=== PATIENT | male | born 1955 | race Asian ===

== ENCOUNTER 2017-08-04 07:09 | Day surgery (SDC) | payer OTHER ==
[2017-08-04] MEDS ORDERED: LACTATED RINGERS 1,000 ML IV ONE (07:35)
[2017-08-04] MEDS ORDERED: fentaNYL 100 MCG/2 ML VIAL IVP ONE (08:25)
[2017-08-04] MEDS ORDERED: MIDAZOLAM 2 MG/2 ML VIAL IVP ONE (08:25)
[2017-08-04 09:11] VITALS: BP 136/69
== END 2017-08-04 07:10 | disposition home or self-care (01) ==
LOC: SDS 07:09
PROVIDERS: ATTEND Surgery
PROC: 0DBP8ZX Excision of Rectum, Via Natural or Artificial Opening Endoscopic, Diagnostic (ICD-10-PCS; principal; 2017-08-04 08:15)
DX: Z12.11 Encounter for screening for malignant neoplasm of colon (principal); D12.8 Benign neoplasm of rectum; I10 Essential (primary) hypertension; E78.5 Hyperlipidemia, unspecified; G47.30 Sleep apnea, unspecified; Z79.82 Long term (current) use of aspirin
CPT/HCPCS: 45384; J7120

== ENCOUNTER 2020-08-28 13:35 | Outpatient (CLI) | payer OTHER ==
[2020-08-28 14:27] VITALS: BP 159/109
--- NOTE | 2020-08-28 14:27 | SLEEP CARE CONSULTATION ---
Information from patient questionnaire entered by Simran García. I have reviewed and concur with the information entered by Simran García. This document represents the service I personally performed and the decisions made by me, Severo Mayo MD, [facility] [place] History of Present Illness Service Date and Time: 08/28/2020 1335 Reason for Visit: New patient, Previously diagnosed sleep apnea (severe - AHI - 37.8), Re-establish care (last seen 2007) Chief Complaint: reports: Snoring, Frequent awakenings at night Date of Onset: 13 years Usual bedtime: 11 pm Time it takes to fall asleep: 1 hour Snores at night: Yes Observed to quit breathing while asleep: No Sleeps alone due to snoring: Yes Number of times waking at night: 2-3 Reasons for waking at night: reports: Snoring, Bathroom Toss, Turn, or Twitch while sleeping: Yes Recalls having dreams: Yes Usually gets out of bed at: 7:30-8 am Feels refreshed in the morning: No Morning headache: No Sleepy or fatigued during the day: Yes Ever fallen asleep while driving: Yes Takes day naps: No Dreams during day naps: No Prior sleep studies: Yes Year and Where: 2007 - [facility] Type of Sleep Study: Polysomnography Additional HPI information: Mr. Bolton is a 65 year old gentleman who was diagnosed here 13 years ago with severe obstructive sleep apnea-hypopnea. The AHI was 37.8 and ramonita oxygen saturation, 73%. He was started on CPAP at 6 cmH2O. He never returned until now. He said he used the CPAP for a short while then quit because it was too loud. He continues to snore and his continues to see him quit breathing at night. He is sleepy during the day. . - Parasomnia Symptoms Ever been unable to move upon waking from sleep: No Walks in sleep: No Talks in sleep: No Ever acted out dreams in sleep: No Ever felt weak in the knees when startled or emotional: No Bothered by creepy, crawly, restless sensations in legs: No Problems with memory or concentration: No Subjective Initial [place] Sleepiness Scale score: 20 (in 2007) Current [place] Sleepiness Scale score: 14 Past Medical History Past Medical History: reports: Hypertension, Diabetes, Other (Cholesterol) Social History The patient's occupation is a RETIRED. Patient is and lives in [place]. Have you smoked in the past 12 months: No Alcohol use: No Caffeine use: Yes Caffeine amount and frequency: once in a while Family History Family Hx Sleep Apnea: Sibling: Sleep apnea - Untreated (uncle), Other: Sleep apnea - Untreated Allergies and Home Medications Drug allergies reviewed: Yes Home medication list reviewed: Yes (aspirin, losartan, and Zocor) Review of Systems Weight gain over past 5 years: 10 Cardiovascular: reports: high blood pressure Respiratory: denies: shortness of breath, wheeze, sputum production, chronic cough, other Gastrointestinal: denies: heartburn, difficulty swallowing, nausea, vomitting, diarrhea, abdominal pain, other Urinary: denies: incontinence, frequency, urgency, impotence, other Neurological: denies: headaches, seizure, head trauma, disorientation, speech dysfunction, gait or balance problems, fainting or unconsciousness, other Psychiatric: denies: Attention Deficit Hyperactivity, anxiety, depression, mood disorder, claustrophobia, other Ear/Nose/Throat: reports: nasal congestion, dry mouth/throat, wisdom teeth removed Endocrine: denies: thyroid disease, history of goiter, sluggishness, too hot or cold, excessive thirst, increased appetite, increased urination, unexplained weakness, other Musculoskeletal: reports: joint pain, back pain Immunologic: denies: sneezing, rash, itching, allergies to food or environment, other Physical Exam Vital signs obtained and entered by: Dr. Mayo Blood Pressure: 159/109 Cuff size: regular Heart Rate: 68 O2 Saturation: 99 Height: 5 ft 6 in Weight: 170 lb Body Mass Index: 27.4 BMI Classification: Overweight Neck circumference: 16 Mood/affect: normal HEENT: No craniofacial malformation Nostrils: patent to airflow Turbinates: normal Soft palate: long Hard palate: normal Uvula: normal Uvula visualization: 50% Mallampati Class II Tongue: normal in size Tonsils: small Chin and jaw: normal size and position Impression and Plan IMPRESSION: 1. Obstructive Sleep Apnea-Hypopnea Syndrome, as previously diagnosed. We discussed different treatment options. He is interested in the oral appliance therapy. I explained to him that the treatment is recommended with obstructive sleep apnea-hypopnea is mild. Therefore, we will need to repeat the sleep study to reassess the severity. He chooses to have a home sleep apnea test (HSAT) this time. Plan: 1. Schedule a home sleep apnea test (HSAT). 2. Avoid long distance driving or when feeling sleepy. 3. Avoid alcohol, sedative and muscle relaxant around bedtime. 4. Attempt to lose weight. 5. Return for follow up after the test. Counseling Topics: Weight control Visit Type: In Office Time Spent with Patient (minutes): 15 Provider Statement: I spent 100% of the Face to Face Visit with the patient with greater than 50% spent counseling the patient and coordination of care.
== END 2020-08-28 13:36 | disposition home or self-care (01) ==
LOC: SC 13:35
PROVIDERS: ATTEND Internal Medicine Pulmonary Disease
DX: G47.33 Obstructive sleep apnea (adult) (pediatric) (principal); E66.3 Overweight; Z68.27 Body mass index [BMI] 27.0-27.9, adult
CPT/HCPCS: 99202; 99212

== ENCOUNTER 2020-08-30 13:51 | Outpatient (CLI) | payer OTHER | END 2020-08-30 13:52 | disposition home or self-care (01) | LOC: SC 13:51 | PROVIDERS: ATTEND Internal Medicine Pulmonary Disease | DX: G47.33 Obstructive sleep apnea (adult) (pediatric) (principal); R09.02 Hypoxemia; E66.9 Obesity, unspecified; Z68.27 Body mass index [BMI] 27.0-27.9, adult | CPT/HCPCS: 95806 ==

== ENCOUNTER 2020-09-04 11:23 | Outpatient (CLI) | payer OTHER ==
--- NOTE | 2020-09-05 08:33 | SLEEP CARE CONSULTATION ---
Information from patient questionnaire entered by Simran García. I have reviewed and concur with the information entered by Simran García. This document represents the service I personally performed and the decisions made by me, Severo Mayo MD, [facility]. History of Present Illness Service Date and Time: 09/04/2020 1123 Initial [place] Sleepiness Scale score: 20 (in 2007) Current [place] Sleepiness Scale score: 10 Additional HPI information: HPI: Mr. Bolton returned for follow up of the sleep study he had on 08/30/2020. The test showed severe obstructive sleep apnea-hypopnea with an AHI of 43.3 and ramonita oxygen saturation of 72% The patient was informed of these findings. I explained to him the pathophysiology behind obstructive sleep apnea. We then spent quite a bit of time discussing different treatment options. For mild obstructive sleep apnea, surgery and oral appliance are alternatives to nasal CPAP therapy but in moderate or severe cases, nasal CPAP is the most effective and reliable treatment. Weight loss in an obese individual is strongly recommended. After some discussion, he opted to try CPAP again. He used CPAP for a short while 13 years ago. He quit because it was too loud.. Sleep Study - Results Type of Sleep Study: Home sleep study Prior sleep studies: Yes Year and Where: 2007 - [facility] Allergies and Home Medications Drug allergies reviewed: Yes Home medication list reviewed: Yes Review of Systems Review of systems same as previous: Yes Physical Exam Height: 5 ft 6 in Weight: 170 lb Body Mass Index: 27.4 BMI Classification: Overweight Impression and Plan IMPRESSION: 1. Obstructive Sleep Apnea-Hypopnea Syndrome, severe, associated with moderate hypoxemia. Obviously this is the cause of the patients symptoms of unrefreshed sleep, and excessive daytime sleepiness. As mentioned above, the patient will be started on autoCPAP set between 5 and 15 cmH2O. Depending on his response and compliance he may be brought back for an overnight CPAP titration study. PLAN: 1. Prescription made for an autoCPAP, heated humidifier, and related supplies. The patient would like to hold on to the prescription until he gets on Medicare next week. 2. The patient is again cautioned about driving until his sleepiness completely resolves on the CPAP therapy. 3. Return for follow up after one month of using the CPAP. Visit Type: In Office Time Spent with Patient (minutes): 15 Provider Statement: I spent 100% of the Face to Face Visit with the patient with greater than 50% spent counseling the patient and coordination of care.
== END 2020-09-04 11:24 | disposition home or self-care (01) ==
LOC: SC 11:23
PROVIDERS: ATTEND Internal Medicine Pulmonary Disease
DX: G47.33 Obstructive sleep apnea (adult) (pediatric) (principal); G47.36 Sleep related hypoventilation in conditions classified elsewhere; E66.3 Overweight; Z68.27 Body mass index [BMI] 27.0-27.9, adult
CPT/HCPCS: 99212

== ENCOUNTER 2020-11-20 12:36 | Outpatient (CLI) | payer MEDICARE, OTHER ==
--- NOTE | 2020-11-20 16:49 | SLEEP CARE CONSULTATION ---
Information from patient questionnaire entered by Simran García. I have reviewed and concur with the information entered by Simran García. This document represents the service I personally performed and the decisions made by me, Severo Mayo MD, [facility]. History of Present Illness Service Date and Time: 11/20/2020 1236 Previous diagnosis: Severe, Obstructive Sleep Apnea-Hypopnea Syndrome AHI: 43.3 (in 2020) Reason for follow up: first compliance Equipment type: CPAP Equipment obtained from: Other ([employer]) Mask style: Nasal Prior sleep studies: Yes Year and Where: 2020 and 2007([place]) - [facility] Type of Sleep Study: Home sleep study HPI additional information: HPI: Mr. Bolton was diagnosed to have severe obstructive sleep apnea-hypopnea syndrome and returns today for follow up of CPAP therapy. The patient purchased the device from [employer] and was fitted with a full face mask. He uses the device almost nightly and all through the night. The compliance report shows that he uses the device 26 nights out of the past 30 nights, averaging 4.9 hours a night. He complains of the straps hurting his ears but no particular problem with the device such as soreness on the face, dry nose, epistaxis, nasal congestion or headache. He thinks that the pressure of 5 - 15 cmH2O is comfortable. On the CPAP therapy he notices improvement in his sleep quality, and that he wakes up feeling fresher in the morning and more awake/alert during the day. His notices no snore at all. [place] Sleepiness Scale score is 9. The average residual AHI is 2.9; and average air leak is 6 L/minute. The 90th percentile pressure is 14.6 cmH2O. CPAP Compliance Data - Data Reviewed with Patient Average duration of nightly device use: 4 hr 55 min Compliance rate %: 87 Current pressure setting (cmH2O): 5-15 Humidity settin Average residual AHI: 2.9 Subjective Patient concerns: reports: mask leak noise, dry mouth, nose, throat Current pressure setting perceived as: comfortable Initial [place] Sleepiness Scale score: 20 (in 2007) Current [place] Sleepiness Scale score: 11 Allergies and Home Medications Drug allergies reviewed: Yes Home medication list reviewed: Yes Review of Systems Review of systems same as previous: Yes Physical Exam Height: 5 ft 6 in Weight: 170 lb Body Mass Index: 27.4 BMI Classification: Overweight Impression and Plan IMPRESSION: 1. Obstructive Sleep Apnea-Hypopnea Syndrome, severe (AHI was 37.8), with the patient continuing to do well on nasal CPAP therapy. He has excellent compliance and significant clinical benefits. The current pressure appears eff ective and comfortable. Overall, he is very satisfied with treatment and plans to continue with it long-term. No adjustment is necessary today. PLAN: 1. Continue with autoCPAP set at 5 - 15 cm H2O. 2. Get a strap guard. 3. Try other full face masks. 4. Return in one year for follow up or earlier if there is any problem with the treatment. Counseling Topics: Weight control Follow up with Sleep Care in: 1 year Visit Type: In Office Time Spent with Patient (minutes): 15 Provider Statement: I spent 100% of the Face to Face Visit with the patient with greater than 50% spent counseling the patient and coordination of care.
== END 2020-11-20 12:37 | disposition home or self-care (01) ==
LOC: SC 12:36
PROVIDERS: ATTEND Internal Medicine Pulmonary Disease
DX: G47.33 Obstructive sleep apnea (adult) (pediatric) (principal); E66.3 Overweight; Z68.27 Body mass index [BMI] 27.0-27.9, adult
CPT/HCPCS: 99212; G0463

== ENCOUNTER 2022-01-28 08:59 | Outpatient (CLI) | payer MEDICARE, OTHER ==
[2022-01-28 09:35] VITALS: BP 132/70
--- NOTE | 2022-01-28 09:35 | SLEEP CARE CONSULTATION ---
Information from patient questionnaire entered by Hernandez Rodgers. I have reviewed and concur with the information entered by Hernandez Rodgers. This document represents the service I personally performed and the decisions made by me, Severo Mayo MD, [facility]. History of Present Illness Service Date and Time: 01/28/2022 0859 Previous diagnosis: Severe, Obstructive Sleep Apnea-Hypopnea Syndrome AHI: 43.3 (in 2020) Reason for follow up: annual (LAST SEEN 11/29) Equipment type: CPAP (RESMED) Equipment obtained from: Other ([employer]) Mask style: Nasal Prior sleep studies: Yes Year and Where: 2020 and 2007([place]) - [facility] Type of Sleep Study: Home sleep study HPI additional information: Mr. Bolton was diagnosed to have severe obstructive sleep apnea-hypopnea syndrome and returned today for follow up of CPAP therapy. The patient purchas ed the device from [employer] He was fitted with a full face mask. He is not using his CPAP much at all because of traveling. He complains of the pressure being too high and the air is too dry. He does not know that he can adjust the humidity setting. On the CPAP device he notices slight improvement. His did not notice any snore at all on the CPAP. Sleep Study - Results Type of Sleep Study: Home sleep study Prior sleep studies: Yes Year and Where: 2020 and 2007([place]) - [facility] CPAP Compliance Data - Data Reviewed with Patient Average duration of nightly device use: 4 HOURS, 20 MINUTES Compliance rate %: 7 (08/01/21 TO 01/27/22) Current pressure setting (cmH2O): 5-15 Average residual AHI: 5.7 Subjective Initial [place] Sleepiness Scale score: 20 (in 2007) Current [place] Sleepiness Scale score: 9 (01/28/22) Allergies and Home Medications Allergy and home medication list: Allergies No Known Drug Allergies Allergy (Verified 08/04/17 07:29) Review of Systems Review of systems same as previous: Yes Physical Exam Vital signs obtained and entered by: CLARITA HENDERSON Blood Pressure: 132/70 (LEFT ARM ) Cuff size: regular Heart Rate: 66 O2 Saturation: 97 Height: 5 ft 6 in Weight: 170 lb Body Mass Index: 27.4 BMI Classification: Overweight Impression and Plan IMPRESSION: 1. Obstructive Sleep Apnea-Hypopnea Syndrome, severe, with the patient not using his CPAP. I will lower the pressure for his comfort. I explained to him how to raise the humidity setting. PLAN: 1. AutoCPAP lowered to 4 - 12 cm H2O on the memory card. 2. The patient is to raise the heated humidifier setting. 3. Try to lose weight. 4. Return for a follow up in two months. Adjust device pressure to (cmH2O): 4 - 12 Follow up with Sleep Care in: 1-2 months Follow up recommended for: Weight management Visit Type: In Office Time Spent with Patient (minutes): 15 Provider Statement: I spent 100% of the Face to Face Visit with the patient with greater than 50% spent counseling the patient and coordination of care.
== END 2022-01-28 09:00 | disposition home or self-care (01) ==
LOC: SC 08:59
PROVIDERS: ATTEND Internal Medicine Pulmonary Disease
DX: G47.33 Obstructive sleep apnea (adult) (pediatric) (principal); E66.3 Overweight; Z68.27 Body mass index [BMI] 27.0-27.9, adult
CPT/HCPCS: 99212; G0463

== ENCOUNTER 2022-07-23 09:54 | Outpatient (CLI) | payer MEDICARE, OTHER ==
--- NOTE | 2022-07-23 16:53 | XRAY Report ---
PROCEDURE: Chest 2 View X-Ray INDICATIONS: HYPERTENSION TECHNIQUE: 2 views of the chest were acquired. COMPARISON: None. FINDINGS: Surgical changes and devices: None. Lungs and pleura: No pleural effusions or pneumothorax. Lungs are clear. Mediastinum: Mediastinal contours are normal. Heart size is normal. Bones and chest wall: No suspicious bony abnormalities. Soft tissues appear unremarkable. IMPRESSION: No acute process. Reviewed by: Cr Campoverde MD on 07/23/2022 4:52 PM PDT Approved by: Cr Campoverde MD on 07/23/2022 4:52 PM PDT Station ID: [id number]
== END 2022-07-23 09:55 | disposition home or self-care (01) ==
LOC: DI 09:54
PROVIDERS: ATTEND Internal Medicine
DX: I10 Essential (primary) hypertension (principal)
CPT/HCPCS: 93005

== ENCOUNTER 2022-07-24 09:52 | Outpatient (CLI) | payer MEDICARE, OTHER ==
[2022-07-24 10:05] LABS: BASOPHILS # (AUTO) 0.1 10^3/uL (0.0-0.1); EOSINOPHILS # (AUTO) 0.2 10^3/uL (0.0-0.7); EOSINOPHILS % (AUTO) 4.4 %; HCT - HEMATOCRIT 45.8 % (42.0-52.0); HGB - HEMOGLOBIN 14.6 g/dL (14.0-18.0); LYMPHOCYTES # (AUTO) 1.5 10^3/uL (1.5-3.5); LYMPHOCYTES % (AUTO) 28.8 %; MEAN CORPUSCULAR HEMOGLOBIN 30.7 pg (27.0-31.0); MEAN CORPUSCULAR HGB CONC 31.9 g/dL (32.0-36.0); MEAN CORPUSCULAR VOLUME 96.2 fL (80.0-94.0); MONOCYTES # (AUTO) 0.4 10^3/uL (0.0-1.0); MONOCYTES % (AUTO) 7.7 %; NEUTROPHILS % (AUTO) 57.9 %; PLT - PLATELET COUNT 268 10^3/uL (130-450); RED BLOOD COUNT 4.76 10^6/uL (4.70-6.10); WHITE BLOOD COUNT 5.2 x10^3/uL (4.8-10.8)
[2022-07-24 10:23] LABS: ALBUMIN 4.1 g/dL (3.2-5.5); ALBUMIN/GLOBULIN RATIO 1.1 (1.0-2.2); ALKALINE PHOSPHATASE 58 IU/L (42-121); ALT ALANINE AMINOTRANSFERASE 29 IU/L (10-60); AST ASPARTATE AMINOTRANSFERASE 29 IU/L (10-42); BILIRUBIN,TOTAL 0.9 mg/dL (0.2-1.0); BUN - BLOOD UREA NITROGEN 23 mg/dL (6-20); CALCIUM 8.7 mg/dL (8.5-10.3); CARBON DIOXIDE - CO2 26 mmol/L (21-32); CHLORIDE 106 mmol/L (101-111); CHOL/HDL RATIO 3.2 (<5.0); CHOLESTEROL 155 mg/dL; GFR - MDRD 75 (>89); GLUCOSE 108 mg/dL (70-100); HDL CHOLESTEROL 48 mg/dL; LDL CHOLESTEROL,CALCULATED 89 mg/dL; LDL/HDL RATIO 1.9 (<3.6); POTASSIUM 4.2 mmol/L (3.5-5.0); SODIUM 139 mmol/L (135-145); TOTAL PROTEIN 7.9 g/dL (6.7-8.2); TRIGLYCERIDES 90 mg/dL; VLDL CHOLESTEROL 18 mg/dL
[2022-07-24 11:28] LABS: ESTIMATED AVERAGE GLUCOSE 140 mg/dL (70-100); HEMOGLOBIN A1c% 6.5 % (4.27-6.07)
== END 2022-07-24 09:53 | disposition home or self-care (01) ==
LOC: LAB 09:52
PROVIDERS: ATTEND Internal Medicine
DX: I10 Essential (primary) hypertension (principal); Z12.5 Encounter for screening for malignant neoplasm of prostate; Z79.899 Other long term (current) drug therapy; E11.9 Type 2 diabetes mellitus without complications; E78.5 Hyperlipidemia, unspecified; N40.0 Benign prostatic hyperplasia without lower urinary tract symptoms
CPT/HCPCS: 36415; 80053; 80061; 83036; 84443; 85025; G0103; 83721; 84153

== ENCOUNTER 2023-01-30 07:25 | Day surgery (SDC) | payer MEDICARE, OTHER ==
[~2023-01-30 07:25] MED LIST: CYCLOPENTOLATE 1% OPHTH DROPS 2 ML ONE; KETOROLAC 0.45% OPHTH DROPS ONE; PHENYLEPHRINE 2.5% OPHTH 2 ML DROPS ONE; PROPARACAINE 0.5% OPHTH DROPS 15 ML ONE
[2023-01-30] MEDS ORDERED: LACTATED RINGERS 1,000 ML IV ONE ×2 (08:10→10:37)
--- NOTE | 2023-01-30 08:36 | ANESTHESIA ---
Pre-Anesthesia VS, & Labs - Diagnosis LEFT EYE cataract - Procedure left eye cataract extraction wit IOL implant Vital Signs: Temp Pulse Resp BP Pulse Ox O2 Flow Rate 36.5 C 60 18 136/69 H 97 0 01/30/23 08:00 01/30/23 08:00 01/30/23 08:00 01/30/23 08:00 01/30/23 08:00 01/30/23 08:00 Height: 5 ft 4 in Weight (kg): 77 kg Body Mass Index: 29.1 BMI Classification: Overweight - NPO >8 hours - Lab Results Current Lab Results: Laboratory Tests 01/30/23 08:24: POC Whole Bld Glucose 98 Lab results reviewed: Yes Home Medications and Allergies Home Medications: Ambulatory Orders metFORMIN [Glucophage] 250 mg PO DAILY 01/30/23 Losartan [Cozaar] 50 mg PO DAILY 08/01/17 Simvastatin 40 mg PO DAILY 08/01/17 Cholecalciferol [Vitamin D3] 5,000 unit PO DAILYWM 08/04/17 metFORMIN [Glucophage] 250 mg PO DAILY 01/30/23 Allergies/Adverse Reactions: Allergies Allergy/AdvReac Type Severity Reaction Status Date / Time No Known Drug Allergies Allergy Verified 01/30/23 08:15 Anes History & Medical History - Anesthetic History Anesthesia Complications: reports: No previous complications - Medical History Cardiovascular: reports: Hypertension, High cholesterol Pulmonary: reports: Sleep apnea, CPAP use Gastrointestinal: reports: None Urinary: reports: None Musculoskeletal: reports: None Endocrine/Autoimmune: reports: Other (insulin resistance) Skin: reports: None Smoking Status: Former smoker (quit 30 years ago) Psychosocial: reports: No issues indicated History of Cancer?: No - Surgical History General: reports: Colonoscopy Orthopedic: reports: Other Exam General: Alert, Oriented x3, Cooperative, No acute distress Dental: WNL Mouth Openin Fingerbreadth Neck Mobility: Normal Mallampati classification: III Thyromental Distance: 4-6 cm Mental/Cognitive Status: Alert/Oriented X3, Normal for patient Plan Anesthesia Type: MAC Consent for Procedure(s) Verified and Reviewed: Yes Code Status: Attempt Resuscitation ASA classification: 2-Mild systemic disease Is this case an emergency?: No
[2023-01-30] MEDS ORDERED: EPINEPHrine 1 MG/ML AMP ONE (10:01)
[2023-01-30] MEDS ORDERED: TIMOLOL 0.5% OPHTH DROPS ONE (10:01)
[2023-01-30] MEDS ORDERED: BRIMONIDINE 0.2% OPHTH DROPS 5 ML ONE (10:01)
[2023-01-30] MEDS ORDERED: TRIAMCIN/MOXIFLOX OPHTHALMIC 0.6 ML VIAL IO ONE ×2 (10:01→10:13)
[2023-01-30] MEDS ORDERED: BSS/LIDOCAINE/EPINEPHRINE 1 ML VIAL ONE (10:01)
[2023-01-30] MEDS ORDERED: TIMOLOL 0.5% OPHTH DROPS OPTH ONE (10:11)
[2023-01-30] MEDS ORDERED: EPINEPHrine 1 MG/ML AMP IR ONE (10:11)
[2023-01-30] MEDS ORDERED: BRIMONIDINE 0.2% OPHTH DROPS 5 ML OPTH ONE (10:11)
[2023-01-30] MEDS ORDERED: BSS/LIDOCAINE/EPINEPHRINE 1 ML SYRINGE IO ONE (10:13)
[2023-01-30] MEDS ORDERED: PROPARACAINE 0.5% OPHTH DROPS 15 ML EACHEYE ONE (10:16)
[2023-01-30] MEDS ORDERED: VANCOMYCIN OPHTH (TOPICAL) 10 MG/ML SYRINGE TOP ONE (10:16)
[2023-01-30] MEDS ORDERED: MIDAZOLAM 2 MG/2 ML VIAL ONE (10:28)
[2023-01-30] MEDS ORDERED: fentaNYL 100 MCG/2 ML VIAL ONE (10:28)
--- NOTE | 2023-01-30 10:47 | OPERATIVE REPORT ---
Operative Report - Other Other Information/Narrative: Date of Surgery: 01/30/23 Preop Dx: Visually significant cataract left eye. This was the first cataract surgery. Postop Dx: Same Procedure: Phacoemulsification with posterior chamber intraocular lens implant left eye Surgeon: Dr. Amish Lan Anesthesia: Monitored anesthesia care Complications: None Operative Indications: This is a 67-year-old M with progressive vision loss in the left eye due to 2+ nuclear sclerotic and 3+ cortical cataract. Best corrected visual acuity was 20/30 with glare to 20/500 vision in the left eye. Indications for surgery were: - Overall decrease in vision - Difficulty seeing words on a computer screen - Difficulty reading - Difficulty seeing words, closed captions, or game scores on TV - Difficulty seeing street signs - Difficulty driving in low light or at night - Difficulty driving at night because of headlights from other vehicles - Difficulty with glare or bright lights in any situation The patient was consented at length concerning the risks and benefits of cataract surgery after which the patient expressed a desire to proceed with surgery. Operative Procedure: The patient was taken into OR#3 and placed under monitored anesthesia care. A surgical time-out was conducted confirming correct patient, correct procedure, and correct surgical site. The patient was given topical anesthesia and then prepped and draped in the usual sterile fashion. The eye was entered at the 6 and 3 oclock positions. Intracameral Shugarcaine was injected into the anterior chamber followed by a dispersive viscoelastic. A continuous-tear curvilinear capsulorhexis was performed. The nucleus was hydrodissected and phacoemulsified. The cortex was evacuated using automated infusion and aspiration. A cohesive viscoelastic was injected into the capsular bag and a 18.5 diopter intraocular lens was inserted into the bag. Infusion and aspiration were used to evacuate the viscoelastic materials from the eye. The wounds were hydrated and the eye inflated to physiologic pressure using balanced salt solution. Approximately 0.25ml of a mixture of triamcinolone and moxifloxacin was injected trans-sclerally into the vitreous in the inferotemporal quadrant using a 30 gauge cannula. An additional 0.25ml of a mixture of triamcinolone and moxifloxacin was injected subconjunctivally in the superior quadrant for infection and inflammation prophylaxis. Wound integrity was checked with Weck-Leah sponges. The patient was taken from the operating room in good condition and given post-op instructions.
[2023-01-30 11:21] VITALS: BP 126/77; O2SAT 97
== END 2023-01-30 07:26 | disposition home or self-care (01) ==
LOC: SDS 07:25
PROVIDERS: ATTEND Ophthalmology
DX: E11.36 Type 2 diabetes mellitus with diabetic cataract (principal); H25.812 Combined forms of age-related cataract, left eye; I10 Essential (primary) hypertension; G47.30 Sleep apnea, unspecified; Z79.84 Long term (current) use of oral hypoglycemic drugs; Z87.891 Personal history of nicotine dependence
CPT/HCPCS: 66984; A9270; J3490; J7120

== ENCOUNTER 2023-02-27 08:34 | Day surgery (SDC) | payer MEDICARE, OTHER ==
[2023-02-27] MEDS ORDERED: LACTATED RINGERS 1,000 ML IV ONE (08:57)
--- NOTE | 2023-02-27 09:15 | ANESTHESIA ---
Pre-Anesthesia VS, & Labs - Diagnosis R senile combined cataract - Procedure R extraction cataract w IOL Vital Signs: Temp Pulse Resp BP Pulse Ox O2 Flow Rate 36.3 C L 73 13 140/75 H 98 0 02/27/23 08:57 02/27/23 08:57 02/27/23 08:57 02/27/23 08:57 02/27/23 08:57 02/27/23 08:57 Height: 5 ft 5 in Weight (kg): 77.1 kg Body Mass Index: 28.3 BMI Classification: Overweight - NPO >8 hours Home Medications and Allergies Losartan [Cozaar] 50 mg PO DAILY 08/01/17 Simvastatin 40 mg PO DAILY 08/01/17 Cholecalciferol [Vitamin D3] 5,000 unit PO ONCE 08/04/17 metFORMIN [Glucophage] 250 mg PO DAILY 01/30/23 Allergies/Adverse Reactions: Allergies Allergy/AdvReac Type Severity Reaction Status Date / Time No Known Drug Allergies Allergy Verified 01/30/23 08:15 Anes History & Medical History - Anesthetic History Anesthesia Complications: reports: No previous complications Family history of Anesthesia Complications: Denies Family history of Malignant Hyperthermia: Denies - Medical History Cardiovascular: reports: Hypertension, High cholesterol Pulmonary: reports: Sleep apnea, CPAP use Gastrointestinal: reports: None Urinary: reports: None Musculoskeletal: reports: None Endocrine/Autoimmune: reports: Other Skin: reports: None Smoking Status: Former smoker (quit 30 years ago) - Surgical History General: reports: Colonoscopy Eyes Ears Nose Throat (EENT): reports: Cataracts Orthopedic: reports: Other Exam General: Alert, Oriented x3, Cooperative Dental: WNL Mouth Openin Fingerbreadth Neck Mobility: Normal Mallampati classification: II Respiratory: Lungs clear, Normal breath sounds, No respiratory distress Cardiovascular: Regular rate Neurological: Normal speech Mental/Cognitive Status: Alert/Oriented X3, Normal for patient Cognitive Status: Within normal limits Plan Anesthesia Type: MAC Consent for Procedure(s) Verified and Reviewed: Yes Code Status: Attempt Resuscitation ASA classification: 2-Mild systemic disease Is this case an emergency?: No
[2023-02-27] MEDS ORDERED: MIDAZOLAM 2 MG/2 ML VIAL ONE (09:55)
[2023-02-27] MEDS ORDERED: EPINEPHrine 1 MG/ML AMP ONE (09:59)
[2023-02-27] MEDS ORDERED: TRIAMCIN/MOXIFLOX OPHTHALMIC 0.6 ML VIAL IO ONE ×2 (09:59→10:16)
[2023-02-27] MEDS ORDERED: BRIMONIDINE 0.2% OPHTH DROPS 5 ML ONE (09:59)
[2023-02-27] MEDS ORDERED: BSS/LIDOCAINE/EPINEPHRINE 1 ML VIAL ONE (09:59)
[2023-02-27] MEDS ORDERED: TIMOLOL 0.5% OPHTH DROPS ONE (09:59)
[2023-02-27] MEDS ORDERED: fentaNYL 100 MCG/2 ML VIAL ONE (09:59)
[2023-02-27] MEDS ORDERED: EPINEPHrine 1 MG/ML AMP IR ONE (10:15)
[2023-02-27] MEDS ORDERED: BRIMONIDINE 0.2% OPHTH DROPS 5 ML OPTH ONE (10:15)
[2023-02-27] MEDS ORDERED: TIMOLOL 0.5% OPHTH DROPS OPTH ONE (10:16)
[2023-02-27] MEDS ORDERED: VANCOMYCIN OPHTH (TOPICAL) 10 MG/ML SYRINGE TOP ONE (10:16)
[2023-02-27] MEDS ORDERED: PROPARACAINE 0.5% OPHTH DROPS 15 ML EACHEYE ONE (10:16)
[2023-02-27] MEDS ORDERED: BSS/LIDOCAINE/EPINEPHRINE 1 ML SYRINGE IO ONE (10:16)
[2023-02-27] MEDS ORDERED: LACTATED RINGERS 500 ML IV ONE ×2 (10:25)
--- NOTE | 2023-02-27 10:32 | OPERATIVE REPORT ---
Operative Report - Other Other Information/Narrative: Date of Surgery: 02/27/23 Preop Dx: Visually significant cataract right eye. Cataract surgery was performed in the left eye on [id number]. Postop Dx: Same Procedure: Phacoemulsification with posterior chamber intraocular lens implant right eye Surgeon: Dr. Amish Lan Anesthesia: Monitored anesthesia care Complications: None Operative Indications: This is a 67-year-old M with progressive vision loss in the right eye due to 2+ nuclear sclerotic and 3+ cortical cataract. Best corrected visual acuity was 20/40 with glare to 20/500 vision in the right eye. Indications for surgery were: - Overall decrease in vision - Difficulty seeing words on a computer screen - Difficulty reading - Difficulty driving in low light or at night - Difficulty driving at night because of headlights from other vehicles - Difficulty with glare or bright lights in any situation The patient was consented at length concerning the risks and benefits of catarac t surgery after which the patient expressed a desire to proceed with surgery. Operative Procedure: The patient was taken into OR#3 and placed under monitored anesthesia care. A surgical time-out was conducted confirming correct patient, correct procedure, and correct surgical site. The patient was given topical anesthesia and then prepped and draped in the usual sterile fashion. The eye was entered at the 6 and 3 oclock positions. Intracameral Shugarcaine was injected into the anterior chamber followed by a dispersive viscoelastic. A continuous-tear curvilinear capsulorhexis was performed. The nucleus was hydrodissected and phacoemulsified. The cortex was evacuated using automated infusion and aspiration. A cohesive viscoelastic was injected into the capsular bag and a 18.5 diopter intraocular lens was inserted into the bag. Infusion and aspiration were used to evacuate the viscoelastic materials from the eye. The wounds were hydrated and the eye inflated to physiologic pressure using balanced salt solution. Approximately 0.25ml of a mixture of triamcinolone and moxifloxacin was injected trans-sclerally into the vitreous in the inferotemporal quadrant using a 30 gauge cannula. An additional 0.25ml of a mixture of triamcinolone and moxifloxacin was injected subconjunctivally in the superior quadrant for infection and inflammation prophylaxis. Wound integrity was checked with Weck-Leah sponges. The patient was taken from the operating room in good condition and given post-op instructions.
--- NOTE | 2023-02-27 10:33 | ANESTHESIA POST OP EVALUATION ---
Anesthesia Post Eval - Post Anesthesia Eval Vitals: Last Vital Signs Temp 36.5 C 02/27/23 10:25 Pulse 72 02/27/23 10:25 Resp 14 02/27/23 10:25 BP 135/70 H 02/27/23 10:25 Pulse Ox 99 02/27/23 10:25 O2 Flow Rate 0 02/27/23 08:57 CV Function Including HR & BP: Stable Pain Control: Satisfactory Nausea & Vomiting: Negative Mental Status: Baseline Respiratory Status: Airway Patent Hydration Status: Satisfactory Anesthesia Complications: None
[2023-02-27 10:39] VITALS: BP 134/66; O2SAT 99
--- NOTE | 2023-02-27 11:03 | OPERATIVE REPORT ---
Operative Report - Other Other Information/Narrative: Date of Surgery: 02/27/23 Preop Dx: Visually significant cataract right eye. This was the first cataract surgery. Postop Dx: Same Procedure: Phacoemulsification with posterior chamber intraocular lens implant right eye Surgeon: Dr. Amish Lan Anesthesia: Monitored anesthesia care Complications: None Operative Indications: This is a 67-year-old M with progressive vision loss in the right eye due to 2-3+ nuclear sclerotic and 3+ cortical cataract. Best corrected visual acuity was 20/40 with glare to hand motion vision in the right eye. Indications for surgery were: - Overall decrease in vision - Difficulty seeing words on a computer screen - Difficulty reading - Difficulty seeing words, closed captions, or game scores on TV - Difficulty seeing street signs - Difficulty driving in low light or at night - Difficulty driving at night because of headlights from other vehicles - Difficulty with glare or bright lights in any situation The patient was consented at length concerning the risks and benefits of cataract surgery after which the patient expressed a desire to proceed with surgery. Operative Procedure: The patient was taken into OR#3 and placed under monitored anesthesia care. A surgical time-out was conducted confirming correct patient, correct procedure, and correct surgical site. The patient was given topical anesthesia and then prepped and draped in the usual sterile fashion. The eye was entered at the 6 and 3 oclock positions. Intracameral Shugarcaine was injected into the anterior chamber followed by a dispersive viscoelastic. A continuous-tear curvilinear capsulorhexis was performed. The nucleus was hydrodissected and phacoemulsified. The cortex was evacuated using automated infusion and aspiration. A cohesive viscoelastic was injected into the capsular bag and a 21.5 diopter intraocular lens was inserted into the bag. Infusion and aspiration were used to evacuate the viscoelastic materials from the eye. The wounds were hydrated and the eye inflated to physiologic pressure using balanced salt solution. Approximately 0.25ml of a mixture of triamcinolone and moxifloxacin was injected trans-sclerally into the vitreous in the inferotemporal quadrant using a 30 gauge cannula. An additional 0.25ml of a mixture of triamcinolone and moxifloxacin was injected subconjunctivally in the superior quadrant for infection and inflammation prophylaxis. Wound integrity was checked with Weck-Leah sponges. The patient was taken from the operating room in good condition and given post-op instructions.
== END 2023-02-27 08:35 | disposition home or self-care (01) ==
LOC: SDS 08:34
PROVIDERS: ATTEND Ophthalmology
DX: E11.36 Type 2 diabetes mellitus with diabetic cataract (principal); H25.811 Combined forms of age-related cataract, right eye; G47.33 Obstructive sleep apnea (adult) (pediatric); Z98.42 Cataract extraction status, left eye; Z87.891 Personal history of nicotine dependence
CPT/HCPCS: 66984; A9270; J3490; J7120

== ENCOUNTER 2023-03-25 14:13 | Outpatient (CLI) | payer MEDICARE, OTHER ==
--- NOTE | 2023-03-25 14:44 | Sleep Patient Instructions ---
Sleep Center Visit Summary - Patient Visit Information Reason for Visit: Annual Visit - Patient Instructions Additional Instructions: You will continue with CPAP therapy with pressure set at 5-15 cmH2O. A supply prescription will be updated with your DME. We encourage you to continue to try to lose weight. Please follow up with the sleep care office in 1 year. - Clinic Information Contact: [facility] [address] [place] [address] [email or web address] T: [phone]
--- NOTE | 2023-03-25 14:48 | SLEEP CARE CONSULTATION ---
Information from patient questionnaire entered by Skip Plascencia. I have reviewed and concur with the information entered by Skip Plascencia. This document represents the service I personally performed and the decisions made by , Didi Mallory ARNP. History of Present Illness Service Date and Time: 03/25/2023 1413 Previous diagnosis: Severe, Obstructive Sleep Apnea-Hypopnea Syndrome AHI: 43.3 (in 2020) Reason for follow up: annual (LAST SEEN 03/2022) Equipment type: CPAP (RESMED Airsense 10, s/u 09/2020) Equipment obtained from: Other ([facility]; getting supplies) Mask style: Nasal Backup mask available: Yes Last cushion change: couple weeks ago Prior sleep studies: Yes Year and Where: 2020 and 2007([place]) - [facility] Type of Sleep Study: Home sleep study HPI additional information: DOROTA SMART was diagnosed to have severe, AHI 43.3, obstructive sleep apnea- hypopnea syndrome and returned today for CPAP therapy annual follow-up. Sleep Study - Results Type of Sleep Study: Home sleep study Prior sleep studies: Yes Year and Where: 2020 and 2007([place]) - [facility] CPAP Compliance Data - Data Reviewed with Patient Average duration of nightly device use: 4 hours 38 minutes Compliance rate %: 33 (186/365 days used) Current pressure setting (cmH2O): 5-15 Average residual AHI: 3.1 Central apnea: 0.5 Obstructive apnea: 1.1 Average large leak: 0.4 L/min Subjective Missed days of use due to: reports: travel Patient concerns: reports: condensation in mask/hose (occasional), dry mouth, nose, throat (occasional). denies: aerophagia, mask discomfort, air blowing in eyes, mask leak noise, nasal congestion, epistaxis Observed to snore while using device: No Current pressure setting perceived as: comfortable On therapy, patient: reports: sleeping better, awakening more refreshed, being more awake and alert during the day, more rested overall. denies: drowsiness while driving Initial [place] Sleepiness Scale score: 20 (in 2007) Current [place] Sleepiness Scale score: 4 (03/25/23) Allergies and Home Medications Known drug allergies: No Drug allergies reviewed: Yes Home medication list reviewed: Yes (no changes) Allergy and home medication list: Allergies No Known Drug Allergies Allergy (Verified 03/24/23 10:27) Review of Systems Review of systems same as previous: No (CATARACT SURGERY BOTH EYES) Physical Exam Vital signs obtained and entered by: SKIP Zhou MA Blood Pressure: 126/70 (LEFT ARM) Cuff size: regular Heart Rate: 75 O2 Saturation: 95 Height: 5 ft 4 in Weight: 171 lb 6.4 oz Body Mass Index: 29.4 BMI Classification: Overweight Impression and Plan 1. Obstructive Sleep Apnea-Hypopnea Syndrome, severe, with fair treatment compliance and good apnea control. On CPAP therapy, the patient has better sleep quality and is more rested overall. He states he does not use his CPAP when he travels but tries to use it otherwise at home. Patient has significant improvement of their sleep apnea and is satisfied with current CPAP therapy. Patient denies significant problems with oral dryness, nasal congestion, epistaxis, skin irritation or aerophagia. Patient's apnea severity and rationale for treatment to reduce apnea, improve sleep quality and reduce cardiovascular and cerebrovascular events was reviewed. I also reviewed the benefit of consistent device use of CPAP for hypertension and diabetes. 2. Overweight, unspecified. Currently patients BMI is 29.4. Obesity increases the risk of apnea, CPAP pressure requirements and overall health risks especially cardiovascular and diabetes. Thus patient is advised to lose weight. * Continue auto CPAP pressure at 5-15 cmH2O * Update supply prescription * Notify me if snoring with mask or feeling that the pressure is too much or too little * Attempt to lose weight * Call this office if any problems using CPAP * Return for follow up in 1 year, or sooner if concerns arise Counseling Topics: Spare mask, Weight loss health impact Prescriptions: Device supplies Follow up with Sleep Care in: 1 year Visit Type: In Office Time Spent with Patient (minutes): 20 Provider Statement: I spent 100% of the Face to Face Visit with the patient with greater than 50% spent counseling the patient and coordination of care.
[2023-03-25 14:56] VITALS: BP 126/70; O2SAT 95
== END 2023-03-25 14:14 | disposition home or self-care (01) ==
LOC: SC 14:13
PROVIDERS: ATTEND Nurse Practitioner Family
DX: G47.33 Obstructive sleep apnea (adult) (pediatric) (principal); E66.3 Overweight; Z68.29 Body mass index [BMI] 29.0-29.9, adult
CPT/HCPCS: 99213; G0463; 99212